=== PATIENT | male | born 1935 | race African-American/Black ===

== ENCOUNTER 2022-05-09 20:45 | Emergency (ER) | payer MEDICARE ==
[~2022-05-09] VITALS: Ht 172.7 cm; Wt 80.7 kg
--- NOTE | 2022-05-09 20:51 | NUR ---
Pt to bed 10
--- NOTE | 2022-05-09 20:53 | NUR ---
Patient resting in bed, A/Ox4, chest rise and fall symmetrical, no s/s of distress, seizure pads in place, ER physician at bedside assessing patient.
[2022-05-09 20:54] VITALS: BP 139/73
[2022-05-09] MEDS ORDERED: LORazepam 2 MG/ML VIAL IVP ONE (21:00)
[2022-05-09] MEDS ORDERED: NACL 0.9% 1,000 ML IV ONE (21:00)
[2022-05-09] MEDS ORDERED: carBAMazepine 200 MG TAB PO ONE (21:10)
[2022-05-09 21:27] LABS: BASOPHILS # (AUTO) 0.1 K/uL (0.00-0.22); BASOPHILS % (AUTO) 1.2 % (0.0-2.0); EOSINOPHILS # (AUTO) 0.1 K/uL (0-0.4); EOSINOPHILS % (AUTO) 0.6 % (0.0-4.0); HEMATOCRIT 27.9 % (36-52); HEMOGLOBIN 9.1 g/dL (12.0-18.0); LYMPHOCYTES # (AUTO) 1.3 K/uL (2.0-11.5); LYMPHOCYTES % (AUTO) 15.9 % (20.5-51.1); MEAN CORPUSCULAR HEMOGLOBIN 29 pg (27-31); MEAN CORPUSCULAR HGB CONC 33 g/dL (33-37); MEAN CORPUSCULAR VOLUME 90.1 fL (80-94); MONOCYTES # (AUTO) 0.7 K/uL (0.8-1.0); MONOCYTES % (AUTO) 7.9 % (1.7-9.3); NEUTROPHILS # (AUTO) 6.2 K/uL (1.8-7.7); NEUTROPHILS % (AUTO) 74.4 % (42.2-75.2); PLATELET COUNT (AUTO) 243 K/uL (140-450); RED CELL DISTRIBUTION WIDTH 18.8 % (11.6-13.7); WHITE BLOOD COUNT (AUTO) 8.3 K/uL (4.8-10.8)
[2022-05-09 22:01] LABS: ANION GAP 10.4 (8-16); CARBON DIOXIDE 28.5 mmol/L (21-32); CHLORIDE 106 mmol/L (98-107); CREATININE 1.3 mg/dL (0.6-1.3); GLUCOSE 111 mg/dL (74-106); POTASSIUM 3.9 mmol/L (3.5-5.1); SODIUM SERUM 141 mmol/L (136-145); UREA NITROGEN, BLOOD 24 mg/dL (7-18)
[2022-05-09 22:06] LABS: ALBUMIN 3.4 g/dL (3.4-5.0); ASPARTATE AMINOTRANSFERASE 17 U/L (15-37); TOTAL BILIRUBIN 0.1 mg/dL (0.0-1.0)
--- NOTE | 2022-05-09 22:23 | NUR ---
Pt to CT
--- NOTE | 2022-05-09 22:45 | NUR ---
Patient resting in bed, A/Ox4, chest rise and fall symmetrical, no s/s of distress, seizure pads in place, ER physician at bedside assessing patient.
--- NOTE | 2022-05-10 00:21 | NUR ---
Patient resting in bed, A/Ox4, chest rise and fall symmetrical, no s/s of distress, seizure pads in place, ER physician at bedside assessing patient.
[2022-05-10 01:05] VITALS: BP 128/85
--- NOTE | 2022-05-10 01:05 | NUR ---
Patient discharged with v/s stable. Written and verbal after care instructions given and explained. Patient verbalized understanding. Ambulatory with steady gait. All questions addressed prior to discharge. Advised to follow up with PMD.
== END 2022-05-10 01:05 | disposition home or self-care (01) ==
LOC: MED 20:45
DX: R56.9 Unspecified convulsions (principal)
CPT/HCPCS: 36415; 70450; 71045; 80053; 85025; 93005; 96361; 96374; 99285; J2060; J7030; Q0092

== ENCOUNTER 2022-08-03 13:22 | Emergency (ER) | payer MEDICARE ==
[~2022-08-03] VITALS: Ht 172.7 cm; Wt 80.7 kg
[2022-08-03 13:29] VITALS: BP 120/58
--- NOTE | 2022-08-03 13:48 | NUR ---
DR. POTTER EVALUATING PATIENT AT BEDSIDE.
--- NOTE | 2022-08-03 14:05 | NUR ---
patient biba to bed 6.
--- NOTE | 2022-08-03 14:10 | NUR ---
AMBULATED TO BED IN NO DISTRESS.
[2022-08-03 14:50] LABS: BASOPHILS # (AUTO) 0.1 K/uL (0.00-0.22); BASOPHILS % (AUTO) 0.9 % (0.0-2.0); EOSINOPHILS # (AUTO) 0.1 K/uL (0-0.4); EOSINOPHILS % (AUTO) 1.6 % (0.0-4.0); HEMATOCRIT 35.2 % (36-52); HEMOGLOBIN 11.7 g/dL (12.0-18.0); LYMPHOCYTES # (AUTO) 1.2 K/uL (2.0-11.5); LYMPHOCYTES % (AUTO) 13.5 % (20.5-51.1); MEAN CORPUSCULAR HEMOGLOBIN 30 pg (27-31); MEAN CORPUSCULAR HGB CONC 33 g/dL (33-37); MEAN CORPUSCULAR VOLUME 91.2 fL (80-94); MONOCYTES # (AUTO) 0.6 K/uL (0.8-1.0); MONOCYTES % (AUTO) 6.6 % (1.7-9.3); NEUTROPHILS # (AUTO) 6.7 K/uL (1.8-7.7); NEUTROPHILS % (AUTO) 77.4 % (42.2-75.2); PLATELET COUNT (AUTO) 174 K/uL (140-450); RED BLOOD CELL COUNT(AUTO) 3.86 MIL/uL (4.20-6.10); RED CELL DISTRIBUTION WIDTH 15.2 % (11.6-13.7); WHITE BLOOD COUNT (AUTO) 8.6 K/uL (4.8-10.8)
--- NOTE | 2022-08-03 14:55 | NUR ---
a/o times 4, nad, denies any pain, no dizziness, nsr on cm o2 sat 98% ra, sr up times 2
[2022-08-03 15:10] LABS: ALBUMIN 2.9 g/dL (3.4-5.0); ANION GAP 9.2 (8-16); ASPARTATE AMINOTRANSFERASE 20 U/L (15-37); CARBON DIOXIDE 27.2 mmol/L (21-32); CHLORIDE 108 mmol/L (98-107); CREATININE 1.3 mg/dL (0.6-1.3); GLUCOSE 115 mg/dL (74-106); POTASSIUM 4.4 mmol/L (3.5-5.1); SODIUM SERUM 140 mmol/L (136-145); TOTAL BILIRUBIN 0.2 mg/dL (0.0-1.0); UREA NITROGEN, BLOOD 11 mg/dL (7-18)
--- NOTE | 2022-08-03 17:54 | NUR ---
food tray given
--- NOTE | 2022-08-03 18:47 | NUR ---
a/o times 4, nad, denies any pain, no dizziness, nsr on cm, o2 sat 98% ra, sr uptimes 2, awaits to be transferred to
--- NOTE | 2022-08-03 21:07 | NUR ---
Patient to be transferred to [facility]. Is being transferred due to insurance. Receiving facility has accepting physician and available space. ER physician has signed transfer form. Patient or responsible libertarian has agreed to transfer and signed form. Patient belongings inventoried and will be sent with patient. Copy of nursing notes, lab reports, Physicians Orders to be sent with patient. Report called to at receiving facility. [facility] ambulance service has been called for transfer. ETA is [id number].
--- NOTE | 2022-08-03 22:53 | NUR ---
Pt picked up by [facility] to be transfer to [place] accompanied by sewing inspector and EMT. Alert awake and responsive. No SOB or distress. Denies pain or discomfort.
[2022-08-03 22:55] VITALS: BP 145/61
== END 2022-08-03 22:53 | disposition short-term general hospital (02) ==
LOC: MED 13:22
DX: R55 Syncope and collapse (principal); Z20.822 Contact with and (suspected) exposure to COVID-19; I10 Essential (primary) hypertension; Z79.899 Other long term (current) drug therapy
CPT/HCPCS: 36415; 80053; 83880; 84484; 85025; 93005; 99285